=== PATIENT | female | born 1975 | race Caucasian/White ===

== ENCOUNTER → 2016-10-03 | Outpatient (CLI) | payer BC ==
--- NOTE | 2016-10-03 08:20 | US ---
EXAMINATION TYPE: US abdomen complete DATE OF EXAM: 10/03/2016 7:21 AM COMPARISON: NONE CLINICAL HISTORY: 41-year-old female R14.0 Abdominal Bloating distention. TECHNIQUE: Multiple sonographic images of the abdomen were obtained. FINDINGS: Liver Length: 12.7 cm Gallbladder Wall: 0.2 cm CBD: 0.3 cm Spleen: 13.0 cm Right Kidney: 9.4 x 6.0 x 6.5 cm Left Kidney: 10.4 x 4.7 x 5.4 cm Pancreas: Grossly unremarkable. Liver: Normal homogeneous echotexture without focal lesion. Gallbladder: No abnormal gallbladder distention, wall thickening, pericholecystic fluid, or shadowing calculi. Evidence for sonographic Casper's sign: No CBD: Within normal limits. Spleen: measures 13.0 cm, upper limits of normal. Right Kidney: No hydronephrosis, lower pole partially obscured by bowel Left Kidney: No hydronephrosis, lower pole partially obscured by bowel Upper IVC: Not well seen. Abd Aorta: Mild atherosclerotic irregularity without aneurysm. IMPRESSION: A few structures such as the upper abdominal IVC and lower poles of the kidneys are suboptimally visu alized. Otherwise, unremarkable sonographic examination of the abdomen.
--- NOTE | 2016-10-03 08:53 | US ---
EXAMINATION TYPE: US pelvic complete DATE OF EXAM: 10/03/2016 7:29 AM COMPARISON: NONE CLINICAL HISTORY: 41-year-old female R14.0 Abdominal Bloating and distention. Hysterectomy 8 years ag o. TECHNIQUE: Multiple transabdominal sonographic images of the pelvis were obtained. Findings: Uterus: surgically absent. Right Ovary: 1.5 x 2.3 x 1.0 cm for a volume of 1.8 mL. Left Ovary: 2.3 x 1.6 x 1.6 cm for volume of 3.1 mL. No evident adnexal abnormality or cul-de-sac free fluid. IMPRESSION: 1. Status post hysterectomy. 2. Small bilateral ovaries. 3. No pelvic free fluid.
== END | disposition home or self-care (01) ==
LOC: RADUSWWP 06:56
PROVIDERS: ATTEND Internal Medicine
DX: R14.0 Abdominal distension (gaseous) (principal); Z90.710 Acquired absence of both cervix and uterus
CPT/HCPCS: 76700; 76856

== ENCOUNTER → 2018-01-24 | Outpatient (CLI) | payer BC ==
[~2018-01-24] MED LIST: DENOSUMAB 60 MG/ML 1 ML SYRINGE SQ NR
[2018-01-24 13:22] VITALS: BP 133/85; PULSE 70; RESP 16; TEMP 98.5
== END | disposition home or self-care (01) ==
LOC: PROCWHC3 12:44
PROVIDERS: ATTEND Internal Medicine
DX: M81.0 Age-related osteoporosis without current pathological fracture (principal)
CPT/HCPCS: 96372; J0897

== ENCOUNTER → 2019-05-23 | Outpatient (CLI) | payer BC ==
[2019-05-23 10:59] LABS: HCT 44.2 % (34.0-46.0); HGB 14.8 gm/dL (11.4-16.0); MCH 29.3 pg (25.0-35.0); MCHC 33.4 g/dL (31.0-37.0); MCV 87.9 fL (80.0-100.0); Platelet Count 192 k/uL (150-450); RBC 5.03 m/uL (3.80-5.40); RDW 12.9 % (11.5-15.5); WBC 4.9 k/uL (3.8-10.6)
[2019-05-23 14:51] LABS: Band Neutrophils % 1 %; Eosinophils # (M) 0.98 k/uL (0-0.7); Lymphocytes # (M) 1.18 k/uL (1.0-4.8); Monocytes # (M) 0.15 k/uL (0-1.0); Neutrophils % (M) 52 %; Nucleated Red Blood Cells 0 /100 WBC (0-0); Total Cells Counted 100
[2019-05-23 14:55] LABS: Total Eosinophil Count 984 #EOS/uL (150-300)
[2019-05-23 19:32] LABS: Dermato. farinae IgE <0.10 kU/L
[2019-05-23 19:33] LABS: Cat Epith & Dander IgE 1.13 kU/L
[2019-05-23 20:17] LABS: Red Top (Bentgrass) IgE <0.10 kU/L
[2019-05-23 20:18] LABS: Elm IgE <0.10 kU/L; Ragweed,Common IgE <0.10 kU/L
[2019-05-23 20:19] LABS: Birch IgE <0.10 kU/L; Maple (Box Elder) IgE <0.10 kU/L; Oak IgE <0.10 kU/L
[2019-05-23 20:20] LABS: Alternaria alternata IgE <0.10 kU/L; Aspergillus fumagatus IgE 0.17 kU/L; Cladosporian herbarum IgE <0.10 kU/L
[2019-05-23 20:29] LABS: Cockroach IgE <0.10 kU/L; Dog Dander IgE 2.23 kU/L
== END | disposition home or self-care (01) ==
LOC: LABWHC1 08:59
PROVIDERS: ATTEND Internal Medicine
DX: K52.9 Noninfective gastroenteritis and colitis, unspecified (principal)
CPT/HCPCS: 36415; 82785; 85008; 85025; 86003